=== PATIENT | female | born 1970 | race Caucasian/White ===

== ENCOUNTER 2017-05-02 07:29 | Emergency (ER) | payer BC, MEDICAID ==
[2017-05-02] MEDS ORDERED: 0.9 % SODIUM CHLORIDE 1,000 ML BAG IV ONE ×2 (07:31→08:51)
[2017-05-02] MEDS ORDERED: ONDANSETRON HCL IV 4 MG/2 ML VIAL IVP ONE (07:36)
--- NOTE | 2017-05-02 07:36 | Emergency Department Record ---
History of Present Illness - General Stated Complaint: ABDOMINAL Time Seen by Provider: 05/02/17 07:30 Source: Patient, Family Mode of Arrival: Ambulatory Limitations: No limitations - History of Present Illness Initial Comments: 46 yo female presents with abdominal pain. The pain started 5 days ago. It has been associated with diarrhea and vomiting. No blood in either. The abdominal pain has been on the left side in the upper and lower area. She denies and history of diverticulits. She has had colonoscopies in the past due to pre cancerous findings. PCP in [place]. Complaint: Abdominal pain -: Days(s) (5) Location: LUQ, LLQ Radiation: LUQ, LLQ Migration to: LUQ, LLQ Severity: Moderate Quality: Aching Consistency: Constant Improves With: Nothing Worsens With: Eating Associated Symptoms: Anorexia, Diarrhea, Vomiting - Related Data Home Medications Medication Instructions Recorded Confirmed Last Taken Albuterol Sulfate 0.083% [Neb] 3 ml NEB .EVERY 4-6 HOURS PRN 05/02/17 05/02/17 05/01/17 Aripiprazole [Abilify] 15 mg PO DAILY 05/02/17 05/02/17 05/01/17 Aspirin [Aspir-Low] 81 mg PO DAILY 05/02/17 05/02/17 05/01/17 Beclomethasone Dipropionate [Qvar 8.7 gm IH BID 05/02/17 05/02/17 05/01/17 80Mcg/120 Actuat Inhaler] Clonazepam 0.5 mg PO BID 05/02/17 05/02/17 05/01/17 Cyclobenzaprine HCl 10 mg PO QHS 05/02/17 05/02/17 05/01/17 Diclofenac Sodium [Voltaren] 100 gm TP ASDIR 05/02/17 05/02/17 05/01/17 Lamotrigine 25 mg PO QID 05/02/17 05/02/17 05/01/17 Pantoprazole Sodium [Protonix] 40 mg PO DAILY 05/02/17 05/02/17 05/01/17 Perphenazine 8 mg PO ASDIR 05/02/17 05/02/17 Unknown Previous Rx's Medication Instructions Recorded Dicyclomine HCl [Bentyl] 10 mg PO Q8H #15 cap 05/02/17 Ondansetron [Zofran Odt] 4 mg PO Q8H #15 tab.rapdis 05/02/17 Allergies Allergy/AdvReac Type Severity Reaction Status Date / Time acetaminophen [From Vicodin] Allergy VOMITING Verified 05/02/17 08:13 amitriptyline Allergy HYPERSENSIT Verified 05/02/17 08:15 IVITY codeine Allergy VOMITING Verified 05/02/17 08:13 gabapentin Allergy HYPERSENSIT Verified 05/02/17 08:15 IVITY hydrocodone bitartrate Allergy VOMITING Verified 05/02/17 08:13 [From Vicodin] lithium Allergy HYPERSENSIT Verified 05/02/17 08:15 IVITY paroxetine Allergy ALTERED Verified 05/02/17 08:13 MENTAL STATUS Penicillins Allergy RASH Verified 05/02/17 08:13 pregabalin Allergy HYPERSENSIT Verified 05/02/17 08:15 IVITY sumatriptan [From Imitrex] Allergy HYPERSENSIT Verified 05/02/17 08:13 IVITY sumatriptan succinate Allergy HYPERSENSIT Verified 05/02/17 08:13 [From Imitrex] IVITY tetracycline Allergy VOMITING Verified 05/02/17 08:13 topiramate Allergy ALTERED Verified 05/02/17 08:13 MENTAL STATUS vancomycin Allergy HYPERSENSIT Verified 05/02/17 08:15 IVITY Review of Systems Constitutional: Denies: Chills, Fever, Malaise, Weakness Eyes: Denies: Eye discharge, Eye pain, Photophobia ENT: Denies: Congestion, Throat pain Respiratory: Denies: Cough, Dyspnea, Hemoptysis, Wheezes Cardiovascular: Denies: Chest pain, Palpitations, Syncope Endocrine: Denies: Fatigue Gastrointestinal: Reports: As per HPI, Abdominal pain, Diarrhea, Nausea, Vomiting. Denies: Constipation, Hematemesis, Hematochezia, Melena Genitourinary: Denies: Dysuria, Frequency, Urgency Musculoskeletal: Denies: Arthralgia, Back pain, Myalgia, Neck pain Skin: Denies: Bruising, Change in color, Rash Neurological: Denies: Headache, Numbness, Weakness Psychiatric: Denies: Anxiety Hematological/Lymphatic: Denies: Blood Clots, Easy bleeding, Easy bruising, Swollen glands Physical Exam - General General Appearance: Alert, Oriented x3 Limitations: No limitations - Head Head exam: Atraumatic, Normal inspection - Eye Eye exam: Normal appearance, PERRL. negative: Conjunctival injection, Periorbital swelling, Scleral icterus - ENT ENT exam: Normal exam, Mucous membranes moist, Normal orophraynx Ear exam: Normal external inspection Nasal Exam: Normal inspection Mouth exam: Normal external inspection Throat exam: Normal inspection. negative: Tonsillar erythema, Tonsillar exudate - Neck Neck exam: Normal inspection, Full ROM. negative: Tenderness - Respiratory Respiratory exam: Normal lung sounds bilaterally. negative: Respiratory distress - Cardiovascular Cardiovascular Exam: Regular rate, Normal rhythm, Normal heart sounds Peripheral Pulses: 2+: Radial (R), Radial (L) - GI/Abdominal GI/Abdominal exam: Soft, Guarding (LUQ, soft abdomen, no tenderness right side and RLQ) - Rectal Rectal exam: Deferred - exam: Deferred - Extremities Extremities exam: Normal inspection, Full ROM, Normal capillary refill. negative: Tenderness - Back Back exam: Reports: Normal inspection, Full ROM. Denies: Muscle spasm, Rash noted, Tenderness - Neurological Neurological exam: Alert, Normal gait, Oriented X3 - Psychiatric Psychiatric exam: Agitated, Anxious, Normal affect, Normal mood - Skin Skin exam: Dry, Intact, Normal color, Warm Course - Reevaluation(s) Reevaluation #1: The patient denies an allergy to Morphine 05/02/17 07:40 05/02/17 08:09 The CBC was reviewed. No acute changes The UA is negative for infection with negative UCG. 05/02/17 08:24 The CMP was reviewed. No acute changes The Lipase is normal. 05/02/17 10:[address] was reviewed. Mild distal colon thickening which could be non distension or mild inflammation. NO other acute findings. She is doing well. No fever or WBC elevation. DC with symptomatic care. We discussed follow up and reasons to return to the ED. Medical Decision Making - Lab Data Result diagrams: 05/02/17 07:45 05/02/17 07:45 Disposition Disposition: Discharge Clinical Impression: Vomiting and diarrhea Abdominal pain Qualifiers: Abdominal location: unspecified location Qualified Code(s): R10.9 - Unspecified abdominal pain Disposition: Home, Self-Care Condition: (1) Good Instructions: Acute Diarrhea (ED), Acute Nausea and Vomiting (ED) Additional Instructions: Return to the ED or be seen if worse, fever, blood in the vomit or diarrhea or any new concerns Call your doctor first of the week for a recheck Prescriptions: Dicyclomine HCl [Bentyl] 10 mg PO Q8H #15 cap Ondansetron [Zofran Odt] 4 mg PO Q8H #15 tab.rapdis Time of Disposition: 10:37 Quality - Quality Measures Quality Measures: N/A - Blood Pressure Screening Does Patient Have Any of the Following: No Blood Pressure Classification: Pre-Hypertensive BP Reading Systolic Measurement: 116 Diastolic Measurement: 80 Screening for High Blood Pressure: < Pre-Hypertensive BP, F/U Documented > [ G8950] Pre-Hypertensive Follow-up Interventions: Referral to alternative/primary care provider.
[2017-05-02] MEDS ORDERED: MORPHINE SULFATE 5 MG/ML PFS IVP ONE (07:39)
[2017-05-02] MEDS ORDERED: DIPHENHYDRAMINE HCL IV 50 MG/ML VIAL IVP ONE (07:39)
[2017-05-02 07:55] LABS: URINE APPEARANCE CLEAR; URINE BILIRUBIN NEGATIVE (NEGATIVE); URINE BLOOD TRACE-I (NEGATIVE); URINE COLOR YELLOW; URINE GLUCOSE (UA) NEGATIVE (NEGATIVE); URINE KETONE NEGATIVE (NEGATIVE); URINE LEUKOCYTE ESTERASE NEGATIVE (NEGATIVE); URINE NITRITE NEGATIVE (NEGATIVE); URINE PROTEIN NEGATIVE (NEGATIVE); URINE UROBILINOGEN 0.2 E.U./dL (0.20 - 1.00)
[2017-05-02 07:56] LABS: BASO % 0.2 % (0-6); EOS % 1.7 % (0-6); GRAN % 63.8 % (47-80); HEMATOCRIT 42.1 % (35.0-47.0); LYMPH % 28.7 % (16-45); MEAN CELL VOLUME 97.2 fl (81-97); MEAN CORPUSCULAR HEMOGLOBIN 32.3 pg (27-33); MEAN CORPUSCULAR HGB CONC 33.3 g/dl (32-36); MEAN PLATELET VOLUME 9.8 fl (7.4-10.4); MONO % 5.6 % (0-9); PLATELET COUNT 374 K/uL (130-400); RED BLOOD COUNT 4.33 M/uL (3.80-5.40); RED CELL DISTRIBUTION WIDTH 14.1 % (11.5-14.5); WHITE BLOOD COUNT W/O DIFF 10.8 K/uL (4.2-12.2)
[2017-05-02 08:05] LABS: URINE BACTERIA NONE SEEN; URINE EPITHELIAL CELLS 0 - 2 (FEW); URINE RBC 0 - 2 (NONE SEEN); URINE WBC NONE SEEN (0-2/hpf)
[2017-05-02 08:08] LABS: BLOOD UREA NITROGEN 10 mg/dL (6-20); CREATININE 0.7 mg/dL (0.5-0.9); EST GLOMERULAR FILTRATION RATE > 60 mL/min
[2017-05-02 08:09] LABS: TOTAL PROTEIN 7.5 g/dL (6.6-8.7)
[2017-05-02 08:11] LABS: GLUCOSE,RANDOM 94 mg/dL (74-109)
[2017-05-02 08:13] LABS: ALT/SGPT 9 U/L (<33); AST/SGOT 12 U/L (10.0-35.0)
[2017-05-02 08:14] LABS: ALB/GLOB RATIO 1.2 (1.1-1.8); ALBUMIN 4.1 g/dL (4.0-5.0); ALKALINE PHOSPHATASE 93 U/L (35-104); LIPASE 28 U/L (13-60)
--- NOTE | 2017-05-02 14:55 | CT SCAN REPORT ---
EXAM: CT OF THE ABDOMEN AND PELVIS WITH CONTRAST HISTORY: LEFT LOWER QUADRANT ABDOMINAL PAIN AND DIARRHEA FOR FIVE DAYS. TECHNIQUE: Following oral and intravenous contrast administration, helical CT examination of the abdomen and pelvis was performed including delayed images through the kidneys and urinary bladder with 100 ml of Omnipaque 300 utilized. Comparison: None. FINDINGS: The lung bases are clear. No pleural or pericardial effusion. The heart is not enlarged. The gallbladder is surgically absent. There is prominence of the central biliary tree with the common hepatic/common bile duct measuring 16 mm in maximum diameter. No definite obstructing lesion is, however, identified. This may just relate to a physiologic response to surgical absence of the gallbladder. Correlation with serum bilirubin and alkaline phosphatase levels is recommended. There is a wedge shaped area of hypodensity within the medial segment of the left liver lobe adjacent to the fissure of the falciform ligament consistent with normal variant differential perfusion. There is a questionable too small to characterize hypodense lesion within the anterior segment of the mid right liver lobe. This measures 3 mm. In the absence of known malignancy and absence of known liver disease, this is likely a cyst or hemangioma. No other focal hepatic lesion. The spleen, pancreas, and adrenal glands are normal in appearance. The kidneys are normal in appearance and excrete contrast in a normal fashion. No intraabdominal nor retroperitoneal lymphadenopathy. There is mild atherosclerosis without aneurysmal dilatation of the abdominal aorta nor iliac arteries. No pelvic mass nor lymphadenopathy is seen. There is equivocal trace free fluid in the cul-de-sac. This is nonspecific, but likely physiologic. The uterus is in the midline. The ovaries are not enlarged. No intrinsic urinary bladder abnormality. No gross bowel dilatation. There is apparent borderline to mild wall thickening of the distal colon to the level of the rectum. This may just relate to incomplete distention though mild colitis/proctitis would be difficult to exclude. No free intraperitoneal air. No abscess. The abdominal wall is intact. No lytic or blastic bone lesion. Bilateral spondylolysis of L5 is present without spondylolisthesis. The appendix is not visualized with confidence though there are no findings to suggest acute appendicitis. IMPRESSION: 1. APPARENT BORDERLINE TO MILD WALL THICKENING OF THE DISTAL COLON AND RECTUM. THIS MAY JUST RELATE TO INCOMPLETE DISTENTION THOUGH MILD INFLAMMATORY CHANGE NOT EXCLUDED. 2. POSSIBLE TRACE FREE FLUID IN THE CUL-DE-SAC. THIS IS NONSPECIFIC, BUT LIKELY PHYSIOLOGIC. 3. STATUS POST CHOLECYSTECTOMY. THE PROMINENCE OF THE CENTRAL BILIARY TREE, DISCUSSED ABOVE. 4. 3 MM TOO SMALL TO CHARACTERIZE HYPODENSE FOCUS WITHIN THE RIGHT LIVER LOBE. THIS IS NONSPECIFIC, BUT LIKELY A CYST OR HEMANGIOMA IN THE ABSENCE OF KNOWN MALIGNANCY AND ABSENCE OF KNOWN LIVER DISEASE. JOB NUMBER: [id number] MTDD
== END 2017-05-02 11:04 | disposition home or self-care (01) ==
LOC: ER 07:29
DX: R11.10 Vomiting, unspecified (principal); R19.7 Diarrhea, unspecified; R10.84 Generalized abdominal pain
CPT/HCPCS: 99284 ×2; 96374; 96375; 96361; 83690; 85025; 80053; 81001; 81025; 74177; Q9967; J2405; J2270; J1200; J7030

== ENCOUNTER 2017-06-04 17:34 | Emergency (ER) | payer BC, MEDICAID ==
[2017-06-04] MEDS ORDERED: 0.9 % SODIUM CHLORIDE 1000ML 1,000 ML IV PRN (17:47)
[2017-06-04] MEDS ORDERED: ASPIRIN 81 MG CHEWABLE TABLET PO ONE (17:47)
--- NOTE | 2017-06-04 18:21 | Emergency Department Record ---
History of Present Illness - General Chief Complaint: Chest Pain Stated Complaint: CHEST PAIN Time Seen by Provider: 06/04/17 17:45 Source: Patient, RN notes reviewed Mode of Arrival: Wheelchair - History of Present Illness Initial Comments: chest pain on the left side and it is sharp and it started at 1 am today and she had neck surg at [facility] C6 and C7 disk surgery. patient has left calf which started may 2 and has not seen anyone for her leg pain. Occassioally SOB but also has copd. MD Complaint: Chest pain Onset/Timin -: Hour(s) Pain Location: Left chest Pain Radiation: None Severity: Moderate Severity scale (1-10): 6 Quality: Sharp Consistency: Intermittent Improves With: Nothing Worsens With: Nothing Context: Recent surgery Treatments Prior to Arrival: Aspirin Treatment Prior to Arrival Comment:: 2-81 mg - Related Data Previous Rx's Medication Instructions Recorded Dicyclomine HCl [Bentyl] 10 mg PO Q8H #15 cap 05/02/17 Ondansetron [Zofran Odt] 4 mg PO Q8H #15 tab.rapdis 05/02/17 Cyclobenzaprine HCl [Flexeril] 10 mg PO TID #30 tablet 06/04/17 Allergies Allergy/AdvReac Type Severity Reaction Status Date / Time amitriptyline Allergy HYPERSENSIT Verified 06/04/17 17:40 IVITY codeine Allergy VOMITING Verified 06/04/17 17:40 gabapentin Allergy HYPERSENSIT Verified 06/04/17 17:40 IVITY hydrocodone bitartrate Allergy VOMITING Verified 06/04/17 17:40 [From Vicodin] lithium Allergy HYPERSENSIT Verified 06/04/17 17:40 IVITY paroxetine Allergy ALTERED Verified 06/04/17 17:40 MENTAL STATUS Penicillins Allergy RASH Verified 06/04/17 17:40 pregabalin Allergy HYPERSENSIT Verified 06/04/17 17:40 IVITY sumatriptan [From Imitrex] Allergy HYPERSENSIT Verified 06/04/17 17:40 IVITY sumatriptan succinate Allergy HYPERSENSIT Verified 05/02/17 08:13 [From Imitrex] IVITY tetracycline Allergy VOMITING Verified 05/02/17 08:13 topiramate Allergy ALTERED Verified 05/02/17 08:13 MENTAL STATUS vancomycin Allergy HYPERSENSIT Verified 05/02/17 08:15 IVITY Travel Screening - Travel/Exposure Within Last 30 Days Have you traveled within the last 30 days?: No - Travel/Exposure Within Last Year Have you traveled outside the [place] in the last year?: No - Additonal Travel Details Have you been exposed to anyone with a communicable illness?: No - Travel Symptoms Symptom Screening: None Review of Systems Reviewed: No additional complaints except as noted below Constitutional: Reports: As per HPI. Denies: Chills, Fever, Malaise, Night sweats, Weakness, Weight change Eyes: Reports: As per HPI. Denies: Eye discharge, Eye pain, Photophobia, Vision change ENT: Reports: As per HPI. Denies: Congestion, Dental pain, Ear pain, Epistaxis , Hearing loss, Throat pain Respiratory: Reports: As per HPI. Denies: Cough, Dyspnea, Hemoptysis, Stridor, Wheezes Cardiovascular: Reports: As per HPI, Chest pain. Denies: Arrhythmia, Dyspnea on exertion, Edema, Murmurs, Orthopnea, Palpitations, Paroxysmal nocturnal dyspnea, Rheumatic Fever, Syncope Endocrine: Reports: As per HPI. Denies: Fatigue, Heat or cold intolerance, Polydipsia, Polyuria Gastrointestinal: Reports: As per HPI. Denies: Abdominal pain, Constipation, Diarrhea, Hematemesis, Hematochezia, Melena, Nausea, Vomiting Genitourinary: Reports: As per HPI. Denies: Abnormal menses, Discharge, Dyspareunia, Dysuria, Frequency, Hematuria, Incontinence, Retention, Urgency Musculoskeletal: Reports: As per HPI, Other (left calf pain). Denies: Arthralgia, Back pain, Gout, Joint swelling, Myalgia, Neck pain Skin: Reports: As per HPI. Denies: Bruising, Change in color, Change in hair/ nails, Lesions, Pruritus, Rash Neurological: Reports: As per HPI. Denies: Abnormal gait, Confusion, Headache, Numbness, Paresthesias, Seizure, Tingling, Tremors, Vertigo, Weakness Psychiatric: Reports: As per HPI. Denies: Anxiety, Auditory hallucinations, Depression, Homicidal thoughts, Suicidal thoughts, Visual hallucinations Hematological/Lymphatic: Reports: As per HPI. Denies: Anemia, Blood Clots, Easy bleeding, Easy bruising, Swollen glands Past Medical History - SOCIAL HISTORY Smoking Status: Current every day smoker Alcohol Use: None Drug Use: None - RESPIRATORY Hx Respiratory Disorders: Yes Hx Asthma: Yes Hx COPD: Yes - CARDIOVASCULAR Hx Cardio Disorders: Yes Hx Hypotension: Yes - NEURO Hx Neuro Disorders: Yes Hx Dizziness: Yes Hx Headaches: Yes Hx Neuropathy: Yes - GI Hx GI Disorders: Yes Hx Reflux: Yes Hx Hiatal Hernia: Yes Comment:: gastroparesis. - Hx Genitourinary Disorders: Yes Hx Bladder Problem: Yes (overactive) - ENDOCRINE Hx Endocrine Disorders: No Hx Thyroid Disease: (goiters/cysts) - MUSCULOSKELETAL Hx Musculoskeletal Disorders: Yes Hx Fibromyalgia: Yes Hx Osteoporosis: Yes - PSYCH Hx Psych Problems: Yes Hx Anxiety: Yes Hx Depression: Yes - HEMATOLOGY/ONCOLOGY Hx Hematology/Oncology Disorders: No Family Medical History Any Significant Family History?: Yes Family Hx Comment (NOT TO BE USED IN PLACE OF ITEMS BELOW): Dad- valentin's. Mom Lupus Hx Cancer: Grandparents Physical Exam - General General Appearance: Alert, Oriented x3, Cooperative, No acute distress - Head Head exam: Normal inspection - Eye Eye exam: Normal appearance, PERRL Pupils: Normal accommodation - ENT ENT exam: Normal exam, Mucous membranes moist, Normal external ear exam, Normal orophraynx, TM's normal bilaterally Ear exam: Normal external inspection. negative: External canal tenderness Nasal Exam: Normal inspection. negative: Discharge, Sinus tenderness Mouth exam: Normal external inspection, Tongue normal Teeth exam: Normal inspection. negative: Dental caries Throat exam: Normal inspection. negative: Tonsillar erythema, Tonsillar exudate - Neck Neck exam: Normal inspection, Full ROM. negative: Tenderness - Respiratory Respiratory exam: Normal lung sounds bilaterally. negative: Respiratory distress - Cardiovascular Cardiovascular Exam: Regular rate, Normal rhythm, Normal heart sounds - GI/Abdominal GI/Abdominal exam: Soft, Normal bowel sounds. negative: Tenderness - Rectal Rectal exam: Deferred - exam: Deferred - Extremities Extremities exam: Normal inspection, Full ROM, Normal capillary refill. negative: Tenderness - Back Back exam: Reports: Normal inspection, Full ROM. Denies: Muscle spasm, Rash noted, Tenderness - Neurological Neurological exam: Alert, Normal gait, Oriented X3, Reflexes normal - Psychiatric Psychiatric exam: Normal affect, Normal mood - Skin Skin exam: Dry, Intact, Normal color, Warm Course Vital Signs 06/04/17 17:41 Pulse Rate 73 Respiratory 18 Rate Blood Pressure 132/96 Pulse Ox 97 ultrasound leaving and after EKG sent her to ultrasound to check her left calf pain and she had neck surg 10 days ago for disk surgery Pain is reproducible with palpation of the left chest pain. Medical Decision Making - Data Complexity MDM Data: Labs Ordered and/or Reviewed (d dimer elevated), X-Ray Ordered and/or Reviewed (chest xray neg,neg for dvt,CTA no PE with emphysema changes), EKG Ordered and/or Reviewed (NSR , No acute changes) - Lab Data Result diagrams: 06/04/17 18:30 06/04/17 18:30 Disposition Clinical Impression: Costochondritis, acute Chest pain Qualifiers: Chest pain type: unspecified Qualified Code(s): R07.9 - Chest pain, unspecified Leg pain Qualifiers: Laterality: left Qualified Code(s): M79.605 - Pain in left leg Disposition: Home, Self-Care Condition: (1) Good Instructions: Costochondritis (ED) Additional Instructions: use tramadol three times a day, patient already has this flexeril three times a daypatient already has this follow up with family DrNaresh Judd in 5 to 7 days return to ED if worse Prescriptions: Cyclobenzaprine HCl [Flexeril] 10 mg PO TID #30 tablet Forms: Patient Portal Access Time of Disposition: 20:21 Quality - Quality Measures Quality Measures: N/A - Blood Pressure Screening Does Patient Have Any of the Following: No Blood Pressure Classification: Hypertensive Reading Systolic Measurement: 132 Diastolic Measurement: 96 Screening for High Blood Pressure: < Pre-Hypertensive BP, F/U Documented > [ G8950] Pre-Hypertensive Follow-up Interventions: Referral to alternative/primary care provider.
[2017-06-04 18:33] LABS: BASO % 0.2 % (0-6); EOS % 0.5 % (0-6); GRAN % 71.4 % (47-80); HEMATOCRIT 40.3 % (35.0-47.0); HEMOGLOBIN 13.5 gm/dl (11.6-16.0); LYMPH % 23.6 % (16-45); MEAN CORPUSCULAR HEMOGLOBIN 32.1 pg (27-33); MEAN CORPUSCULAR HGB CONC 33.5 g/dl (32-36); MEAN PLATELET VOLUME 9.1 fl (7.4-10.4); MONO % 4.3 % (0-9); PLATELET COUNT 500 K/uL (130-400); RED CELL DISTRIBUTION WIDTH 13.9 % (11.5-14.5); WHITE BLOOD COUNT W/O DIFF 13.2 K/uL (4.2-12.2)
[2017-06-04 18:47] LABS: BLOOD UREA NITROGEN 13 mg/dL (6-20); CREATININE 0.7 mg/dL (0.5-0.9); EST GLOMERULAR FILTRATION RATE > 60 mL/min
[2017-06-04 18:49] LABS: PARTIAL THROMBOPLASTIN TIME 27.5 SECONDS (24.5-39.1); PROTHROMBIN TIME (PATIENT) 10.4 SECONDS (9.5-12.1)
[2017-06-04 18:50] LABS: GLUCOSE,RANDOM 96 mg/dL (74-109)
[2017-06-04 18:54] LABS: CKMB < 1.0 ng/mL (<3.77)
--- NOTE | 2017-06-05 20:17 | US VENOUS DOPPLER REPORT ---
EXAM: ULTRASOUND VENOUS DOPPLER LOWER EXT LT HISTORY: LEFT LOWER LEG SWELLING AND PAIN. TECHNIQUE: Sonographic evaluation of the deep venous system of the left lower extremity was performed with the addition of augmentation, compression, and Doppler. FINDINGS: There is normal compression and augmentation of blood flow identified within the deep venous system of the left lower extremity. No evidence of deep vein thrombosis. IMPRESSION: NO SONOGRAPHIC EVIDENCE OF DEEP VEIN THROMBOSIS IN THE LEFT LOWER EXTREMITY. [facility]BER: [id number] [facility]
--- NOTE | 2017-06-05 20:19 | RADIOLOGY REPORT ---
EXAM: CHEST 2 VIEWS HISTORY: DIFFICULTY IN BREATHING. TECHNIQUE: Frontal and lateral views of the chest were performed. FINDINGS: Heart size is normal. Lung f[place] are clear. Osseous structures are normal. IMPRESSION: NEGATIVE CHEST EXAMINATION. JOB NUMBER: [id number] MTDD
--- NOTE | 2017-06-05 20:22 | CT ANGIOGRAM REPORT ---
EXAM: CT ANGIOGRAM CHEST CTA w contrast HISTORY: DIFFICULTY IN BREATHING. TECHNIQUE: CTA of the chest was performed after intravenous administration of 80 mL of Omnipaque-350 contrast material. FINDINGS: No mass or filling defect to suggest pulmonary embolism. The thoracic aorta appears normal. The heart and pericardium appear normal. There is centrilobular emphysematous change in the visualized lung apices. No infiltrate or pleural effusion. The osseous structures are normal. IMPRESSION: 1. NEGATIVE FOR PULMONARY EMBOLISM. 2. MILD CENTRILOBULAR EMPHYSEMATOUS CHANGE IN THE LUNG APICES. JOB NUMBER: [id number] [facility]
== END 2017-06-04 20:30 | disposition home or self-care (01) ==
LOC: ER 17:34
DX: M94.0 Chondrocostal junction syndrome [Tietze] (principal); R07.89 Other chest pain; M79.605 Pain in left leg; R06.02 Shortness of breath; J44.9 Chronic obstructive pulmonary disease, unspecified; F17.210 Nicotine dependence, cigarettes, uncomplicated
CPT/HCPCS: 71046; 71275; 80048; 82553; 84484; 85025; 85379; 85610; 85730; 93005; 93010; 99284